=== PATIENT | male | born 1965 | race Caucasian/White ===

== ENCOUNTER 2017-08-30 09:49 | Day surgery (SDC) | payer OTHER ==
[2017-08-30] MEDS ORDERED: MIDAZOLAM 2 MG/2 ML VIAL IVP PRN (10:03)
[2017-08-30] MEDS ORDERED: ALTEPLASE 2 MG VIAL IVP PRN (10:03)
[2017-08-30] MEDS ORDERED: NALOXONE HCL 0.4 MG/ML INJ IVP PRN (10:03)
[2017-08-30] MEDS ORDERED: FLUMAZENIL 0.5 MG/5 ML MDV IVP PRN (10:03)
[2017-08-30] MEDS ORDERED: MEPERIDINE 25 MG/ML SYR IVP PRN (10:03)
[2017-08-30] MEDS ORDERED: GLUCAGON HCL 1 MG VIAL IVP PRN (10:03)
[2017-08-30] MEDS ORDERED: fentaNYL 100 MCG/2 ML INJ IVP PRN (10:03)
[2017-08-30] MEDS ORDERED: PROTAMINE SULFATE 50 MG/5 ML VIAL IVP PRN (10:03)
[2017-08-30] MEDS ORDERED: HEPARIN 10,000 UNIT/10 ML MDV (1,000 UNIT/ML) IVP PRN (10:03)
[2017-08-30] MEDS ORDERED: fentaNYL 100 MCG/2 ML INJ ONE (10:11)
[2017-08-30] MEDS ORDERED: NALOXONE HCL 0.4 MG/ML INJ ONE (10:11)
[2017-08-30] MEDS ORDERED: MIDAZOLAM 2 MG/2 ML VIAL ONE (10:11)
[2017-08-30] MEDS ORDERED: FLUMAZENIL 0.5 MG/5 ML MDV IVP ONE (10:11)
[2017-08-30] MEDS ORDERED: NS 1,000 ML IV SCH (10:15)
--- NOTE | 2017-08-30 10:56 | PDGENHP ---
History & Physical Chief Complaint: sternal mass History of Present Illness: 51M previously healthy, incidental expansile sternal mass on CT, recent core bx was non diagnostic Relevant Physical Exam: NAD, well developed Cardiorespiratory Assessment: RRR, nl wob
--- NOTE | 2017-08-30 10:56 | PDPROPOC ---
Sedation Plan of Care Sedation Plan of Care: vital signs stable, mental status noted, patient educated of risks, benefits, alternatives, patient can tolerate sedation ASA Classification: ASA 2 Planned drugs: fentanyl, midazolam Mallampati Score: Class 2 Mallampati Reference Image:
[2017-08-30] MEDS ORDERED: ONDANSETRON 4 MG/2 ML VIAL IVP PRN (12:40)
[2017-08-30] MEDS ORDERED: ACETAMINOPHEN 325 MG TAB PO PRN (12:40)
--- NOTE | 2017-08-30 12:40 | PDRADPN ---
Radiology Procedure Note Date of Procedure: 08/30/17 Radiologist: Neymar Quintero Anesthesia: IV Sedation Pre-op Diagnosis: indeterminate sternal mass Post-op Diagnosis: same Indication: diagnosis Procedure: CT guided FNA + core biopsy Finding(s): Multiple 20G and 18G FNA obtained coaxially. Single bloody 11G core submitted. D/w pathologist re adequacy. Inf/Abcess present in the surg proc area at time of surgery?: No EBL: Minimal Complications: none Specimen(s): FNA and core in formalin and flow media
[2017-08-30 13:55] VITALS: BP 136/87
== END 2017-08-30 14:00 | disposition home or self-care (01) ==
LOC: FIMAGING 09:49
PROVIDERS: ATTEND Internal Medicine Hematology & Oncology
PROC: 0P903ZX Drainage of Sternum, Percutaneous Approach, Diagnostic (ICD-10-PCS; principal; 2017-08-30 12:57)
PROC: 0PB03ZX Excision of Sternum, Percutaneous Approach, Diagnostic (ICD-10-PCS; principal; 2017-08-30 12:57)
DX: R22.2 Localized swelling, mass and lump, trunk (principal)
CPT/HCPCS: 88184-90; 88185-91; J2250; J2310; J3010

== ENCOUNTER → 2018-05-30 | Outpatient (CLI) | payer OTHER | LOC: BRMIMAGING 09:38 | PROVIDERS: ATTEND Family Medicine | DX: M50.30 Other cervical disc degeneration, unspecified cervical region (principal) | CPT/HCPCS: 72040-PO ==